=== PATIENT | male | born 1960 ===

== ENCOUNTER 2021-10-20 14:28 | Emergency (ER) | payer SELFPAY ==
[2021-10-20 18:51] LABS: Hematocrit 48.3 % (35.5-45.6); Hemoglobin 15.9 gm/dl (11.8-15.2); Mean Corpuscular HGB Conc 33 % (32-34); Mean Corpuscular Volume 94 fl (84-94); Platelet Count 166 K/mm3 (140-440); Red Blood Count 5.16 M/mm3 (3.65-5.03); Red Cell Distribution Width 16.5 % (13.2-15.2)
[2021-10-20 18:54] LABS: Calcium 9.5 mg/dL (8.4-10.2)
[2021-10-20 19:06] LABS: INR 1.11 (0.87-1.13)
[2021-10-20 19:07] LABS: Partial Thromboplastin Time 30.5 Sec. (24.2-36.6)
--- NOTE | 2021-10-20 19:09 | Cat Scan Report ---
CT ABDOMEN AND PELVIS WITHOUT CONTRAST HISTORY: bloating, abdominal pain. COMPARISON: None. TECHNIQUE: CT images of the abdomen and pelvis were obtained without administration of intravenous co ntrast. All CT scans at this location are performed using CT dose reduction for ALARA by means of au tomated exposure control. FINDINGS: Lungs/bones: Mild atelectasis. A few small areas of interstitial prominence and nodularity in the lo wer lungs, nonspecific Abdomen/pelvis: A large amount of abdominal and pelvic ascites. This limits evaluation of the mesent maria m. Limited evaluation of the bowel loops. Visualized portions of the liver, spleen appear normal. A drenal glands are not well seen. Gallbladder not well visualized. No large renal stone is seen. No de finite bowel obstruction. Heart is enlarged. Degenerative changes seen throughout spine IMPRESSION: 1. There is a large amount of abdominal and pelvic ascites. This significantly limits evaluation. No definite bowel obstruction is seen. There may be colon diverticulosis. Evaluation for inflammation is limited 2. Cardiomegaly 2. Mild lower lobe atelectasis. Mild interstitial prominence and mild interstitial nodularity. Signer Name: Andrzej Pal MD Signed: 10/20/2021 7:04 PM Workstation Name: [id number]
[2021-10-20] MEDS ORDERED: SODIUM CHLORIDE 0.9% 1000 ML 1,000 ML IV ONE (20:35)
[2021-10-20 20:59] LABS: Mucus,Urine 2+ /HPF
--- NOTE | 2021-10-20 21:03 | Emergency Department Report ---
ED General Adult HPI - General Chief complaint: Abdominal Pain Stated complaint: VOMITING/WEAKNESS/X3 WEEKS Time Seen by Provider: 10/20/21 20:35 Source: patient, EMS Mode of arrival: Ambulatory Limitations: No Limitations - History of Present Illness Initial comments: Patient 60-year-old male with history of abdominal ascites secondary to EtOH abuse. Patient states he stopped drinking 6 months ago. Has had intermittent ascites since. Patient presents for abdominal swelling. Patient is tolerating p.o. intake patient is making normal bowel movements patient is voiding without difficulty. There is been no fevers or chills. Patient states 2 episodes of nausea vomiting on yesterday however patient is tolerating p.o. intake today. Patient rates ascites at 3/10 on normal exacerbation. Patient states he has not seen GI in 3 months. Severity scale (0 -10): 3 - Related Data Previous Rx's Medication Instructions Recorded Last Taken Type Dicyclomine [Bentyl] 10 mg PO QID PRN #15 capsule 10/20/21 Unknown Rx Ondansetron [Zofran Odt] 4 mg PO Q8HR PRN #12 tab.rapdis 10/20/21 Unknown Rx Allergies Allergy/AdvReac Type Severity Reaction Status Date / Time No Known Allergies Allergy Unverified 10/20/21 15:03 ED Review of Systems ROS: Stated complaint: VOMITING/WEAKNESS/X3 WEEKS Other details as noted in HPI Constitutional: denies: chills, fever Eyes: denies: eye pain, eye discharge, vision change ENT: denies: ear pain, throat pain Respiratory: denies: cough, shortness of breath, wheezing Cardiovascular: denies: chest pain, palpitations Endocrine: no symptoms reported Gastrointestinal: abdominal pain, nausea, vomiting. denies: diarrhea, constipation, melena Genitourinary: as per HPI. denies: urgency, dysuria, frequency, hematuria Musculoskeletal: denies: back pain, joint swelling, arthralgia Skin: denies: rash, lesions Neurological: denies: headache, weakness, paresthesias Psychiatric: denies: anxiety, depression Hematological/Lymphatic: as per HPI ED Past Medical Hx - Past Medical History Additional medical history: Ascities abd - Medications Home Medications: Home Medications Medication Instructions Recorded Confirmed Last Taken Type Dicyclomine [Bentyl] 10 mg PO QID PRN #15 capsule 10/20/21 Unknown Rx Ondansetron [Zofran Odt] 4 mg PO Q8HR PRN #12 tab.rapdis 10/20/21 Unknown Rx ED Physical Exam - General Limitations: No Limitations General appearance: alert, in no apparent distress - Head Head exam: Present: atraumatic, normocephalic - Eye Eye exam: Present: normal appearance, EOMI Pupils: Present: normal accommodation - ENT ENT exam: Present: normal exam, mucous membranes moist - Neck Neck exam: Present: normal inspection, full ROM. Absent: tenderness - Respiratory Respiratory exam: Present: normal lung sounds bilaterally. Absent: respiratory distress, wheezes, rales, rhonchi, stridor, chest wall tenderness - Cardiovascular Cardiovascular Exam: Present: regular rate, normal rhythm, normal heart sounds. Absent: systolic murmur, diastolic murmur, rubs, gallop - GI/Abdominal GI/Abdominal exam: Present: soft, distended, normal bowel sounds. Absent: tenderness, guarding, rebound, rigid, bruit, hernia - Rectal Rectal exam: Present: deferred - Extremities Exam Extremities exam: Present: normal inspection, full ROM, normal capillary refill. Absent: pedal edema - Back Exam Back exam: Present: normal inspection, full ROM. Absent: CVA tenderness (R), CVA tenderness (L) - Neurological Exam Neurological exam: Present: alert, oriented X3, CN II-XII intact, normal gait - Psychiatric Psychiatric exam: Present: normal affect, normal mood - Skin Skin exam: Present: warm, dry, intact, normal color. Absent: rash ED Course Vital Signs 10/20/21 14:29 Temperature 97.1 F L Pulse Rate 100 H Respiratory 16 Rate Blood Pressure 116/90 [Left] O2 Sat by Pulse 96 Oximetry ED Medical Decision Making - Lab Data Result diagrams: 10/20/21 18:18 10/20/21 18:18 Labs 10/20/21 10/20/21 10/20/21 18:18 18:18 18:18 WBC 4.0 L RBC 5.16 H Hgb 15.9 H Hct 48.3 H MCV 94 MCH 31 MCHC 33 RDW 16.5 H Plt Count 166 PT 15.9 H INR 1.11 APTT 30.5 Sodium 138 Potassium 4.6 Chloride 101.5 Carbon Dioxide 22 Anion Gap 19 BUN 36 H Creatinine 1.3 Estimated GFR 57 BUN/Creatinine Ratio 28 Glucose 88 Calcium 9.5 Total Bilirubin 0.80 AST 49 H ALT 28 Alkaline Phosphatase 72 Total Protein 6.7 Albumin 4.0 Albumin/Globulin Ratio 1.5 Lipase 32 Urine Color Urine Turbidity Specific [place] (Man) Ur Protein (Man) Ur Ketones (Man) Ur Nitrite (Man) Ur Reducing Substances Urine Bilirubin (Man) Urine Ictotest Leukocyte Esterase (Man) Urine WBC (Auto) Urine RBC (Auto) U Epithel Cells (Auto) Urine RBC (Manual) Urine Mucus 10/20/21 Unknown WBC RBC Hgb Hct MCV MCH MCHC RDW Plt Count PT INR APTT Sodium Potassium Chloride Carbon Dioxide Anion Gap BUN Creatinine Estimated GFR BUN/Creatinine Ratio Glucose Calcium Total Bilirubin AST ALT Alkaline Phosphatase Total Protein Albumin Albumin/Globulin Ratio Lipase Urine Color Yellow Urine Turbidity Clear Specific [place] (Man) 1.025 Ur Protein (Man) 1+ Ur Ketones (Man) Negative Ur Nitrite (Man) Negative Ur Reducing Substances Not Reportable Urine Bilirubin (Man) Negative Urine Ictotest Not Reportable Leukocyte Esterase (Man) Negative Urine WBC (Auto) 2.0 Urine RBC (Auto) 6.0 U Epithel Cells (Auto) < 1.0 Urine RBC (Manual) Negative Urine Mucus 2+ - Radiology Data Radiology results: report reviewed, image reviewed CT ABDOMEN AND PELVIS WITHOUT CONTRAST HISTORY: bloating, abdominal pain. COMPARISON: None. TECHNIQUE: CT images of the abdomen and pelvis were obtained without administration of intravenous contrast. All CT scans at this location are performed using CT dose reduction for ALARA by means of automated exposure control. FINDINGS: Lungs/bones: Mild atelectasis. A few small areas of interstitial prominence and nodularity in the lower lungs, nonspecific Abdomen/pelvis: A large amount of abdominal and pelvic ascites. This limits evaluation of the mesentery. Limited evaluation of the bowel loops. Visualized portions of the l iver, spleen appear normal. Adrenal glands are not well seen. Gallbladder not well visualized. No l arge renal stone is seen. No definite bowel obstruction. Heart is enlarged. Degenerative changes se en throughout spine IMPRESSION: 1. There is a large amount of abdominal and pelvic ascites. This significantly limits evaluation. No definite bowel obstruction is seen. There may be colon diverticulosis. Evaluation for inflammation is limited 2. Cardiomegaly 2. Mild lower lobe atelectasis. Mild interstitial prominence and mild interstitial nodularity. Signer Name: Andrzej Ring MD Signed: 10/20/2021 7:04 PM Workstation Name: [id number] Transcribed By: CW Dictated By: WAN RING MD Electronically Authenticated By: WAN RING MD Signed Date/Time: 10/20/211903 DD/ 01 TD/TT: - Medical Decision Making Consulted [place] [facility] Dr. Montano recommendation outpatient paracentesis, discussed same with patient patient agrees with discharge plan. Patient is currently alert oriented x3 patient is tolerating p.o. intake without nausea or vomiting. Patient is voiding. Patient is having normal bowel movements. There is no shortness of breath. No fevers no chills. Plan DC to home, follow-up with GI in 1 to 2 days. Return to emergency department should symptoms worsen. Patient verbalized agreement and understanding with discharge plan. Patient will be DC'd home in stable condition at this time. Critical care attestation.: If time is entered above; I have spent that time in minutes in the direct care of this critically ill patient, excluding procedure time. ED Disposition Clinical Impression: Abdominal pain Qualifiers: Abdominal location: generalized Qualified Code(s): R10.84 - Generalized abdominal pain Abdominal ascites Qualifiers: Ascites type: other type Qualified Code(s): R18.8 - Other ascites Disposition: 01 HOME / SELF CARE / HOMELESS Is pt being admited?: No Does the pt Need Aspirin: No Condition: Stable Instructions: Ascites Drainage Catheter Placement, Paracentesis Additional Instructions: Take medications as prescribed, follow-up with gastroenterology doctor in 1 to 2 days. Return to emergency department should symptoms worsen. Follow-up with [facility] as previously scheduled. Prescriptions: Dicyclomine [Bentyl] 10 mg PO QID PRN #15 capsule PRN Reason: abdominal spasm Ondansetron [Zofran Odt] 4 mg PO Q8HR PRN #12 tab.rapdis PRN Reason: Nausea Referrals: [facility] [Outside] - [place] (Follow up with your [facility] as previously scheduled ) [facility] [Provider Group] - [place] Time of Disposition: 21:31
[2021-10-20 21:22] LABS: Color,Urine Yellow (Yellow)
[2021-10-20 21:57] VITALS: BP 128/70
== END 2021-10-20 21:57 | disposition home or self-care (01) ==
LOC: ED 14:28
DX: R18.8 Other ascites (principal); R10.9 Unspecified abdominal pain
CPT/HCPCS: 36415; 74176; 80053; 81001; 83690; 85027; 85610; 85730; 99284